=== PATIENT | male | born 1995 | race African-American/Black ===

== ENCOUNTER 2019-01-23 00:44 | Emergency (ER) | payer MEDICAID, SELFPAY ==
[2019-01-23] MEDS ORDERED: Ondansetron ODT 4 MG TAB ONE (02:08)
[2019-01-23] MEDS ORDERED: Ketorolac Tromethamine 30 MG/ML VIAL ONE (03:18)
[2019-01-23] MEDS ORDERED: Ketorolac Tromethamine 30 MG/ML VIAL IVP SCH (03:30)
== END 2019-01-23 04:10 | disposition home or self-care (01) ==
LOC: ERS 00:44
DX: K04.7 Periapical abscess without sinus (principal); K02.9 Dental caries, unspecified; F17.210 Nicotine dependence, cigarettes, uncomplicated
CPT/HCPCS: 96372; 99283; J1885; Q0162

== ENCOUNTER 2019-03-17 19:06 | Emergency (ER) | payer SELFPAY ==
[2019-03-17] MEDS ORDERED: Lidocaine 1% w/Epinephrine 1:100K 20 ML VIAL ONE (19:32)
[2019-03-17] MEDS ORDERED: Adacel (T-DAP) 0.5 ML SYRINGE ONE (19:44)
[2019-03-17] MEDS ORDERED: Triple Antibiotic Oint 1 GM Packet ONE (19:53)
== END 2019-03-17 20:22 | disposition home or self-care (01) ==
LOC: ERS 19:06
DX: S01.112A Laceration without foreign body of left eyelid and periocular area, initial encounter (principal); F17.210 Nicotine dependence, cigarettes, uncomplicated; X58.XXXA Exposure to other specified factors, initial encounter
CPT/HCPCS: 12011; 90471; 90715; J2001

== ENCOUNTER 2019-03-22 20:02 | Emergency (ER) | payer SELFPAY | END 2019-03-22 20:43 | disposition home or self-care (01) | LOC: ERS 20:02 | DX: S01.112D Laceration without foreign body of left eyelid and periocular area, subsequent encounter (principal) ==